=== PATIENT | female | born 1965 | race Caucasian/White ===

== ENCOUNTER → 2016-09-19 | Outpatient (CLI) | payer BC ==
--- NOTE | 2016-09-20 09:12 | MM ---
Reason for exam: screening (asymptomatic). Last mammogram was performed 7 years and 7 months ago. History: Patient had first child at age 34. Physical Findings: A clinical breast exam by your physician is recommended on an annual basis and results should be correlated with mammographic findings. MG 3D Screening Mammo W/Cad Bilateral CC and MLO view(s) were taken. Prior study comparison: February 03, 2009, bilateral digital screening mammogram. November 13, 2007, bilateral diagnostic digital mammog. The breast tissue is heterogeneously dense. This may lower the sensitivity of mammography. Benign calcifications. There is no discrete abnormality. ASSESSMENT: Benign, BI-RAD 2 RECOMMENDATION: Routine screening mammogram of both breasts in 1 year.
== END | disposition home or self-care (01) ==
LOC: RADMAMWWP 10:47
PROVIDERS: ATTEND Obstetrics & Gynecology
DX: Z12.31 Encounter for screening mammogram for malignant neoplasm of breast (principal)
CPT/HCPCS: 77063; G0202

== ENCOUNTER 2017-09-20 07:40 | Day surgery (SDC) | payer BC ==
[2017-09-18 11:35] VITALS: BMI 24.3
[~2017-09-20 07:40] MED LIST: LACTATED RINGERS 1,000 ML IV SCH
[2017-09-20 07:59] VITALS: RESP 16; TEMP 97.6
[2017-09-20] MEDS ORDERED: LIDOCAINE 1% 20 ML VIAL (10MG/ML) FOR IV START INTRADERMA ONE (08:06)
--- NOTE | 2017-09-20 08:30 | P.PCN ---
Date of Procedure: 09/20/17 Procedure(s) Performed: BRIEF HISTORY: Patient is a 51-year-old pleasant white female, scheduled for an elective colonoscopy as a part of screening for colon neoplasia. PROCEDURE PERFORMED: Colonoscopy with biopsy PREOPERATIVE DIAGNOSIS: Screening for colon cancer. IV sedation per Anesthesia. PROCEDURE: After informed consent was obtained, the patient, was brought into the endoscopy unit. IV sedation was administered by Anesthesia under continuous monitoring. Digital rectal examination was normal. Initially the Olympus CF- 160 flexible video pediatric colonoscope was then inserted in the rectum, gradually advanced into the cecum without any difficulty. Careful examination was performed as the scope was gradually being withdrawn. Ileocecal valve and the appendiceal orifice were visualized and appeared normal. Prep was excellent. Mucosa of the cecum, appeared normal. In the ascending colon there was a 5-6 mm flat polyp that was removed by cold biopsy. The rest of the ascending colon, transverse colon, descending colon, sigmoid colon, and rectum appeared normal. Retroflexion was performed in the rectum and no lesions were seen. The patient tolerated the procedure well. IMPRESSION: 5 mm flat ascending colon polyp status post removal by cold biopsy Rest of the colon appeared normal. RECOMMENDATIONS: Findings of this examination were discussed with the patient as well as her family. She was advised to follow with the biopsy results. If the biopsy shows a tubular adenoma, she can have a repeat colonoscopy in 5 years.
[2017-09-20 08:34] VITALS: PULSE 78
[2017-09-20 08:56] VITALS: BP 116/65
== END 2017-09-20 09:24 | disposition home or self-care (01) ==
LOC: ORWHC2ENDO 07:40
PROVIDERS: ATTEND Internal Medicine Gastroenterology
DX: Z12.11 Encounter for screening for malignant neoplasm of colon (principal); K63.5 Polyp of colon; J45.909 Unspecified asthma, uncomplicated; F32.9 Major depressive disorder, single episode, unspecified; Z79.899 Other long term (current) drug therapy; Z88.1 Allergy status to other antibiotic agents; Z88.2 Allergy status to sulfonamides
CPT/HCPCS: 45380; 81025; 88305

== ENCOUNTER → 2017-12-02 | Outpatient (CLI) | payer BC ==
--- NOTE | 2017-12-04 07:58 | MM ---
Reason for exam: screening (asymptomatic). Last mammogram was performed 1 year and 2 months ago. History: Patient had first child at age 34. MG 3D Screening Mammo W/Cad Bilateral CC and MLO view(s) were taken. Prior study comparison: September 19, 2016, bilateral MG 3d screening mammo w/cad. There are scattered fibroglandular densities. No significant changes when compared with prior studies. ASSESSMENT: Negative, BI-RAD 1 RECOMMENDATION: Routine screening mammogram of both breasts in 1 year.
== END | disposition home or self-care (01) ==
LOC: RADMAMWWP 09:22
PROVIDERS: ATTEND Obstetrics & Gynecology
DX: Z12.31 Encounter for screening mammogram for malignant neoplasm of breast (principal)
CPT/HCPCS: 77063; 77067

== ENCOUNTER → 2018-01-16 | Outpatient (CLI) | payer BC ==
--- NOTE | 2018-01-16 12:39 | US ---
EXAMINATION TYPE: US abdomen complete DATE OF EXAM: 01/16/2018 COMPARISON: NONE CLINICAL HISTORY: K81.0 Cholecystitis. Abdominal pain EXAM MEASUREMENTS: Liver Length: 11.0 cm Gallbladder Wall: 0.3 cm CBD: 0.2 cm Spleen: 10.4 cm Right Kidney: 9.5 x 3.5 x 4.0 cm Left Kidney: 10.2 x 3.9 x 4.7 cm Pancreas: Tail obscured by overlying bowel gas Liver: wnl Gallbladder: wnl Evidence for sonographic Lopez's sign: Yes CBD: wnl Spleen: wnl Right Kidney: wnl Left Kidney: Appears to be a cystic structure about mid pole measuring approximately 1.2 x 1.0 x 1.2 cm . This is avascular. Upper IVC: wnl Abd Aorta: wnl The liver is homogenous. The intrahepatic portion of the IVC and proximal abdominal aorta are within normal limits. There is no evidence of cholelithiasis. Common bile duct is unremarkable. The visu alized portions of the pancreas are homogenous. The spleen is unremarkable. Kidneys are free of hyd ronephrosis. There does appear to be a cystic structure in the left kidney measuring 1.2 x 1.0 x 1.2 cm. IMPRESSION: 1. No sonographic evidence of cholelithiasis or acute cholecystitis. If there is further clinical con cern HIDA scan could be performed. 2. Left renal 1.2 cm cyst.
== END | disposition home or self-care (01) ==
LOC: RADUSWWP 10:18
PROVIDERS: ATTEND Family Medicine
DX: N28.1 Cyst of kidney, acquired (principal); K81.0 Acute cholecystitis
CPT/HCPCS: 76700

== ENCOUNTER → 2018-12-18 | Outpatient (CLI) | payer BC ==
--- NOTE | 2018-12-19 13:26 | MM ---
Reason for exam: screening (asymptomatic). Last mammogram was performed 1 year and 1 month ago. History: Patient had first child at age 34. Took hormonal contraceptives for 10 years. Physical Findings: A clinical breast exam by your physician is recommended on an annual basis and results should be correlated with mammographic findings. MG 3D Screening Mammo W/Cad Bilateral CC and MLO view(s) were taken. Prior study comparison: December 02, 2017, bilateral MG 3d screening mammo w/cad. September 19, 2016, bilateral MG 3d screening mammo w/cad. The breast tissue is heterogeneously dense. This may lower the sensitivity of mammography. There is no discrete abnormality. No significant changes when compared with prior studies. ASSESSMENT: Negative, BI-RAD 1 RECOMMENDATION: Routine screening mammogram of both breasts in 1 year.
== END | disposition home or self-care (01) ==
LOC: RADMAMWWP 09:13
PROVIDERS: ATTEND Obstetrics & Gynecology
DX: Z12.31 Encounter for screening mammogram for malignant neoplasm of breast (principal)
CPT/HCPCS: 77063; 77067

== ENCOUNTER → 2021-05-08 | Outpatient (CLI) | payer BC ==
--- NOTE | 2021-05-08 12:07 | XR ---
EXAMINATION TYPE: XR foot complete LT DATE OF EXAM: 05/08/2021 COMPARISON: NONE HISTORY: Pain TECHNIQUE: Three views are submitted. FINDINGS: There is an intra-articular fracture involving the base proximal phalanx first digit. Hypertrophic ar thropathy of the first digit. Narrowing of the first MTP joint. IMPRESSION: 1. Minimally displaced fracture base proximal phalanx first digit..
== END | disposition home or self-care (01) ==
LOC: RADXRMAIN 11:42
PROVIDERS: ATTEND Family Medicine
DX: S62.511A Displaced fracture of proximal phalanx of right thumb, initial encounter for closed fracture (principal)

== ENCOUNTER → 2022-05-29 | Outpatient (CLI) | payer BC ==
--- NOTE | 2022-05-30 19:51 | MM ---
Reason for Exam: Screening (asymptomatic). Last mammogram was performed 3 year(s) and 6 month(s) ago. Patient History: Menarche at age 15. First Full-Term at age 34. Late child-bearing (after 30). Postmenopausal. Patient used Hormonal Contraceptives for 10 years. Risk Values: Monica 5 year model risk: 1.5%. NCI Lifetime model risk: 10.2%. Prior Study Comparison: 09/19/2016 Bilateral Screening Mammogram, [facility]. 12/02/2017 Bilateral Screening Mammogram, [facility]. 12/18/2018 Bilateral Screening Mammogram, [facility]. Tissue Density: There are scattered fibroglandular densities. Findings: Analyzed By CAD. No suspicious groups of microcalcifications, spiculated or lobular masses, architectural distortion or other secondary signs of malignancy are mammographically apparent. Overall Assessment: Benign, BI-RAD 2 Management: Screening Mammogram of both breasts in 1 year. A negative mammogram report should not preclude additional follow up of suspicious palpable abnormalities. Patient should continue monthly self breast exam. A clinical breast exam by your physician is recommended on an annual basis and results should be correlated with mammographic findings. Electronically signed and approved by: Dillon Davidson D.O. Radiologis
== END | disposition home or self-care (01) ==
LOC: RADMAMWWP 09:39
PROVIDERS: ATTEND Family Medicine
DX: Z12.31 Encounter for screening mammogram for malignant neoplasm of breast (principal); Z78.0 Asymptomatic menopausal state
CPT/HCPCS: 77063; 77067

== ENCOUNTER 2022-09-07 11:07 | Day surgery (SDC) | payer BC ==
[2022-09-04 14:55] VITALS: BMI 26.6
[2022-09-07 12:10] VITALS: RESP 16; TEMP 97.1
[2022-09-07] MEDS ORDERED: LIDOCAINE 2% INJ 20 MG/ML (2 ML VIAL) ONE (12:46)
[2022-09-07] MEDS ORDERED: PROPOFOL 10 MG/ML 20 ML VIAL IV ONE (12:46)
--- NOTE | 2022-09-07 13:02 | P.PCN ---
Date of Procedure: 09/07/22 Procedure(s) Performed: BRIEF HISTORY: Patient is a 56-year-old pleasant white female scheduled for an elective colonoscopy as a part of evaluation of prior history of colon polyps. Last colonoscopy was 5 years ago and was noted to have a adenoma. PROCEDURE PERFORMED: Colonoscopy with snare polypectomy. PREOPERATIVE DIAGNOSIS: History of colon polyps. IV sedation per Anesthesia. PROCEDURE: After informed consent was obtained, the patient, was brought into the endoscopy unit. IV sedation was administered by Anesthesia under continuous monitoring. Digital rectal examination was normal. Initially the Olympus CF-160 flexible video colonoscope was then inserted in the rectum, gradually advanced into the cecum without any difficulty. Careful examination was performed as the scope was gradually being withdrawn. Ileocecal valve and the appendiceal orifice were visualized and appeared normal. Prep was excellent. Mucosa of the cecum had a 6-7 mm broad-based polyp removed by snare polypectomy. Rest of the, ascending colon, transverse colon, descending colon, sigmoid colon, and rectum appeared normal. Retroflexion was performed in the rectum and no lesions were seen. The patient tolerated the procedure well. IMPRESSION: 6-7 mm broad-based cecal polyp status post polypectomy Rest of the colon appeared normal. RECOMMENDATIONS: Findings of this examination were discussed with the patient as well as her family. She was advised to follow with the biopsy results. If the biopsy results adenoma she can have a repeat colonoscopy in 5 years..
[2022-09-07 13:37] VITALS: BP 111/74; PULSE 73
== END 2022-09-07 14:02 | disposition home or self-care (01) ==
LOC: ORWHC2ENDO 11:07
PROVIDERS: ATTEND Internal Medicine Gastroenterology
DX: Z12.11 Encounter for screening for malignant neoplasm of colon (principal); D12.0 Benign neoplasm of cecum; E78.5 Hyperlipidemia, unspecified; F41.9 Anxiety disorder, unspecified; F32.A Depression, unspecified; Z79.899 Other long term (current) drug therapy; Z79.02 Long term (current) use of antithrombotics/antiplatelets
CPT/HCPCS: 88305; 45385; J2704; J2001

== ENCOUNTER → 2022-12-12 | Outpatient (CLI) | payer BC ==
--- NOTE | 2022-12-13 19:51 | MR ---
EXAMINATION TYPE: MR hip RT wo con DATE OF EXAM: 12/12/2022 COMPARISON: Outside Right femur x-ray October 23, 2022 HISTORY: right hip pain Standard multiplanar, multisequence MRI departmental protocol Multiplanar, multisequence images of the pelvis focusing on right hip were acquired without contra st. FINDINGS: Moderate to severe superior joint space loss in the right hip is more prominent than the le ft hip where there is [id number] joint space loss. Small to tiny left hip joint effusion is pre sent physiologic. There is more small to moderate-sized right hip joint effusion. Right hip shows are as of heterogeneous increased T2 signal throughout the femoral head especially superior aspects with additional increased T2 signal in the femoral neck. Focal triangular diminished T1 signal superior fe moral head noted coronal image 14 series 301. No abnormal bone marrow edema in the right hip. Femoral head shape is maintained bilaterally. Diffuse subcentimeter lymph nodes seen in bilateral groin. Mus london bulk is maintained bilaterally. No groin hernia is seen bilaterally. Anteverted uterus. There is asymmetric enlarged left ovary presumed from 3.6 x 2.9 cm nonsimple cysti c possible solid lesion axial image 24. No suspicious bowel dilatation or pelvic fluid collection. IMPRESSION: 1. Asymmetric fairly advanced degenerative change in the right hip as detailed above. 2. There is 3.6 x 2.9 cm left ovarian nonsimple cyst possible solid mass suspected, advise pelvic ult rasound follow-up to further evaluate.
== END | disposition home or self-care (01) ==
LOC: RADMRIMAIN 15:37
PROVIDERS: ATTEND Orthopaedic Surgery
DX: M16.11 Unilateral primary osteoarthritis, right hip (principal); N83.202 Unspecified ovarian cyst, left side

== ENCOUNTER → 2022-12-14 | Outpatient (CLI) | payer BC ==
--- NOTE | 2022-12-14 13:33 | US ---
EXAMINATION TYPE: US transvaginal DATE OF EXAM: 12/14/2022 COMPARISON: MRI CLINICAL INDICATION: Female, 57 years old with history of N83.202 L OVARIAN MASS; Ovarian mass visual ized on MRI, pt has no complaints at this time TECHNIQUE: Transvaginal (TV). Transvaginal sonographic images of the pelvis were acquired Date of LMP: 2 years ago EXAM MEASUREMENTS: Uterus: 7.8 x 3.2 x 3.4 cm Endometrial Stripe: 0.3 cm Right Ovary: 1.5 x 1.2 x 1.2 cm Left Ovary: 4.7 x 3.8 x 3.3 cm 1. Uterus: Anteverted wnl 2. Endometrium: wnl 3. Right Ovary: wnl 4. Left Ovary: Solid, vascular mass- no "normal" ovarian tissue visualized 5. Bilateral Adnexa: wnl 6. Posterior cul-de-sac: wnl IMPRESSION: 1. There is a solid-appearing area within the left adnexa of uncertain etiology. Solid ovarian neopla sm should be considered.
== END | disposition home or self-care (01) ==
LOC: RADUSWWP 12:50
PROVIDERS: ATTEND Family Medicine
DX: N83.202 Unspecified ovarian cyst, left side (principal)
CPT/HCPCS: 76830

== ENCOUNTER → 2022-12-17 | Outpatient (CLI) | payer BC ==
--- NOTE | 2022-12-17 11:06 | CT ---
EXAMINATION TYPE: CT abdomen pelvis wo/w con CT DLP: 892.4 mGycm, Automated exposure control for dose reduction was used. DATE OF EXAM: 12/17/2022 9:23 AM COMPARISON: Ultrasound 12/14/2022, 12/12/2022 CLINICAL INDICATION:Female, 57 years old with history of N83.202; Abnormal MRI of right hip, attentio n ovary. Patient not having any complaints at time of scan. TECHNIQUE: Axial CT of the abdomen and pelvis. Sagittal and coronal reformats were created on a [employer] workstation. Contrast used:100ml mL of Isovue 300 without and with IV Contrast, Oral contrast used: with Oral Contrast FINDINGS: LOWER CHEST: Unremarkable ABDOMEN LIVER: Unremarkable GALLBLADDER AND BILE DUCTS: Unremarkable. PANCREAS: Unremarkable. SPLEEN: Unremarkable. ADRENAL GLANDS: Unremarkable. KIDNEYS AND URETERS: No evidence of hydronephrosis or renal calculus. The ureters are unremarkable. PELVIS BLADDER: Unremarkable REPRODUCTIVE: Redemonstration of left ovarian solid neoplasm measuring Hounsfield 3.7 x 3.3 x 3.6 cm measuring 30 Hounsfield units on precontrast imaging and 41 Hounsfield units on postcontrast imaging. ABDOMEN & PELVIS STOMACH AND BOWEL: No evidence of bowel obstruction. PERITONEUM/RETROPERITONEUM: No evidence of pneumoperitoneum or free fluid. VASCULATURE: No evidence of aortic aneurysm. MUSCULOSKELETAL: No acute osseous abnormalities, mild multilevel disc degeneration changes with facet joint arthropathy throughout the spine. LYMPH NODES: No gross evidence for lymphadenopathy. SOFT TISSUE/ABDOMINAL WALL: Unremarkable IMPRESSION: Left ovarian solid appearing neoplasm as seen on prior ultrasound an MRI hip. No lymphadenopathy at t his time. No evidence for metastatic disease. Gynecology oncology consultation recommended for surgic al removal.
== END | disposition home or self-care (01) ==
LOC: RADCTMAIN 07:27
PROVIDERS: ATTEND Family Medicine
DX: N83.202 Unspecified ovarian cyst, left side (principal)
CPT/HCPCS: 74178; Q9967

== ENCOUNTER → 2023-05-31 | Outpatient (CLI) | payer BC ==
--- NOTE | 2023-06-03 08:06 | MM ---
Reason for Exam: Screening (asymptomatic). Last screening mammogram was performed 12 month(s) ago. Patient History: Menarche at age 15. First Full-Term at age 34. Late child-bearing (after 30). Postmenopausal. Patient used Hormonal Contraceptives for 10 years. Risk Values: Monica 5 year model risk: 1.6%. NCI Lifetime model risk: 10.0%. Prior Study Comparison: 12/02/2017 Bilateral Screening Mammogram, [facility]. 12/18/2018 Bilateral Screening Mammogram, [facility]. 05/29/2022 Bilateral MG 3D screening mammo w/cad, [facility]. Tissue Density: The breast tissue is heterogeneously dense. This may lower the sensitivity of mammography. Findings: Analyzed By CAD. There is no suspicious group of microcalcifications or new suspicious mass. Overall Assessment: Negative, BI-RAD 1 Management: Screening Mammogram of both breasts in [address] [facility] will attempt to contact patient to return for supplemental views and ultrasound if indicated. Patient should continue monthly self-breast exams. A clinical breast exam by your physician is recommended on an annual basis. This exam should not preclude additional follow-up of suspicious palpable abnormalities. Note on Monica scores and lifetime risk: 1. A Monica score greater than 3% is considered moderate risk. If this is the case, consider specialist referral to assess eligibility for a risk reducing agent. 2. If overall lifetime risk for the development of breast cancer is 20% or higher, the patient may qualify for future screening with alternating mammogram and breast MRI. Electronically signed and approved by: Abdifatah Figueroa DO
== END | disposition home or self-care (01) ==
LOC: RADMAMWWP 16:51
PROVIDERS: ATTEND Family Medicine
DX: Z12.31 Encounter for screening mammogram for malignant neoplasm of breast (principal); Z78.0 Asymptomatic menopausal state
CPT/HCPCS: 77063; 77067

== ENCOUNTER → 2024-01-13 | Outpatient (CLI) | payer BC ==
[2024-01-13 15:48] LABS: Estradiol <20.0 pg/mL; T4, Free (Free Thyroxine) 1.14 ng/dL (0.80-1.80)
[2024-01-13 16:21] LABS: Progesterone 0.2 ng/mL
== END | disposition home or self-care (01) ==
LOC: LABWHC1 08:17
PROVIDERS: ATTEND Family Medicine
DX: N95.1 Menopausal and female climacteric states (principal); E65 Localized adiposity; M25.50 Pain in unspecified joint; R68.89 Other general symptoms and signs
CPT/HCPCS: 36415; 82533; 82670; 83525; 84144; 84439; 84443; 84481

== ENCOUNTER → 2024-07-09 | Outpatient (CLI) | payer BC ==
--- NOTE | 2024-07-11 17:24 | MM ---
Reason for Exam: Screening (asymptomatic). Last mammogram was performed 1 year(s) and 1 month(s) ago. Patient History: Menarche at age 15. First Full-Term at age 34. Late child-bearing (after 30). Left ovary removed at age 57. Right ovary removed at age 57. Postmenopausal. Patient used Hormonal Contraceptives for 10 years. Risk Values: Monica 5 year model risk: 1.6%. NCI Lifetime model risk: 9.8%. Prior Study Comparison: 12/18/2018 Bilateral Screening Mammogram, [facility]. 05/29/2022 Bilateral MG 3D screening mammo w/cad, [facility]. 05/31/2023 Bilateral MG 3D screening mammo w/cad, [facility]. Tissue Density: The breasts are heterogeneously dense, which may obscure small masses. Findings: Analyzed By CAD. The pattern is symmetrical. No significant interval change evident. No suspicious groups of microcalcifications, spiculated or lobular masses, architectural distortion or other secondary signs of malignancy are mammographically apparent. Overall Assessment: Benign, BI-RAD 2 Management: Screening Mammogram of both breasts in 1 year. A negative mammogram report should not preclude additional follow up of suspicious palpable abnormalities. Patient should continue monthly self breast exam. A clinical breast exam by your physician is recommended on an annual basis and results should be correlated with mammographic findings. Note on Monica scores and lifetime risk: 1. A Monica score greater than 3% is considered moderate risk. If this is the case, consider specialist referral to assess eligibility for a risk reducing agent. 2. If overall lifetime risk for the development of breast cancer is 20% or higher, the patient may qualify for future screening with alternating mammogram and breast MRI. [facility], , 07/11/2024 5:22 PM. Electronically signed and approved by: Dillon Davidson D.O. Radiologis
== END | disposition home or self-care (01) ==
LOC: RADMAMWWP 12:31
PROVIDERS: ATTEND Family Medicine
DX: Z12.31 Encounter for screening mammogram for malignant neoplasm of breast (principal); R92.333 Mammographic heterogeneous density, bilateral breasts; Z78.0 Asymptomatic menopausal state; Z90.722 Acquired absence of ovaries, bilateral
CPT/HCPCS: 77063; 77067

== ENCOUNTER → 2025-03-05 | Outpatient (CLI) | payer BC ==
--- NOTE | 2025-03-05 15:14 | US ---
EXAMINATION TYPE: US transvaginal DATE OF EXAM: 03/05/2025 COMPARISON: CT abdomen and pelvis 12/17/2022, ultrasound transvaginal 12/14/2022 12/14/22 CLINICAL INDICATION: Female, 59 years old with history of N95.0 POSTMENOPAUSAL BLEEDING. Spotting aft er switching her hormone patches. Bilateral oophorectomy. TECHNIQUE: Transvaginal (TV). Doppler imaging: Not performed. FINDINGS: Date of LMP: 3-5 years EXAM MEASUREMENTS: Uterus: 8.9 x 4.4 x 3.4 cm Endometrial Stripe: 0.33 cm Right Ovary: Surgically absent Left Ovary: Surgically absent 1. Uterus: Anteverted wnl 2. Endometrium: wnl 3. Right Ovary: Surgically absent 4. Left Ovary: Surgically absent 5. Bilateral Adnexa: wnl 6. Posterior cul-de-sac: wnl Uterus appears anteverted without focal lesion identified. Endometrium is within normal limits. The o varies are surgically absent. No free fluid. IMPRESSION: 1. No ultrasound evidence for acute pelvic process. Normal thickness endometrium. 2. Postsurgical changes from bilateral oophorectomy. [facility], , 03/05/2025 3:12 PM
== END | disposition home or self-care (01) ==
LOC: RADUSWWP 14:26
PROVIDERS: ATTEND Family Medicine
DX: N92.1 Excessive and frequent menstruation with irregular cycle (principal); Z90.722 Acquired absence of ovaries, bilateral
CPT/HCPCS: 76830